=== PATIENT | female | born 1955 | race Caucasian/White ===

== ENCOUNTER 2021-05-04 12:05 | Outpatient (REF) | payer MEDICARE, SELFPAY ==
[2021-05-04 14:36] LABS: Alanine Aminotransferase 15 U/L (0-31); Albumin Level 4.2 g/dL (3.5-5.0); Alkaline Phosphatase 91 U/L (39-117); Anion Gap 15 (12-20); Aspartate Amino Transferase 20 U/L (5-31); Bilirubin Total 0.4 mg/dL (0.0-1.0); Blood Urea Nitrogen 26 mg/dL (9-16); Calcium 9.7 mg/dL (8.4-10.2); Carbon Dioxide 23 mmol/L (22-29); Chloride 106 mmol/L (96-108); Estimated Glomerular Filt Rate 51; Glucose Random 88 mg/dL (60-115); Sodium 139 mmol/L (135-145)
== END 2021-05-04 12:06 | disposition home or self-care (01) ==
LOC: HO.MANLDS 12:05
PROVIDERS: PCP Physician Assistant; Visit Provider Physician Assistant
DX: M54.59 Other low back pain (principal)
CPT/HCPCS: 36415; 80053

== ENCOUNTER 2021-09-24 15:42 | Outpatient (REF) | payer MEDICARE, SELFPAY | END 2021-09-24 15:43 | disposition home or self-care (01) | LOC: HO.MANLDS 15:42 | PROVIDERS: PCP Physician Assistant; Visit Provider Physician Assistant | DX: R30.0 Dysuria (principal) | CPT/HCPCS: 87086 ==

== ENCOUNTER 2022-01-12 08:40 | Outpatient (REF) | payer MEDICARE, SELFPAY ==
[2022-01-12 08:52] LABS: MANUAL DIFF FLAG NO
[2022-01-12 09:09] LABS: Basophils Absolute Auto 0.1 X10*3/uL (0.0-0.2); Basophils Percent Auto 0.7 % (0-2); Eosinophils Absolute Auto 0.2 X10*3/uL (0.0-0.4); Eosinophils Percent Auto 2.9 % (0-4); Hematocrit 40.6 % (37.0-47.0); Imm Gran Abs Auto 0.03 X10*3/uL (0.00-0.03); Imm Gran Pct Auto 0.4 % (0.0-0.4); Lymphocytes Absolute Auto 2.5 X10*3/uL (1.2-4.9); Lymphocytes Percent Auto 35.9 % (20-40); Mean Corpuscular Hemoglobin 29.7 pg (27.0-33.0); Mean Corpuscular Volume 92.9 fL (80.0-98.0); Mean Platelet Volume 9.4 fL (9.4-12.3); Monocytes Absolute Auto 0.6 X10*3/uL (0.1-1.2); Monocytes Percent Auto 8.6 % (2-11); Neutrophils Absolute Auto 3.5 x10*3/uL (2.0-8.3); Neutrophils Percent Auto 51.5 % (45-73); Platelet Count 254 X10*3/uL (160-400); Red Blood Count 4.37 X10*6/uL (4.20-5.50); Red Cell Distribution Width 13.3 % (11.0-16.0); White Blood Count 6.9 X10*3/uL (4.8-10.8)
[2022-01-12 09:51] LABS: Ferritin 170 ng/mL (10-250); Free T4 (Free Thyroxine) 1.02 ng/dL (0.71-1.85); Thyroid Stimulating Hormone 0.88 uIU/mL (0.32-4.0); Vitamin D 25-OH Total 23.2 ng/mL (>30)
[2022-01-12 09:59] LABS: Erythrocyte Sedimentation Rate 14 MM/HR (0-20)
[2022-01-12 10:09] LABS: Alanine Aminotransferase 11 U/L (0-31); Albumin Level 4.2 g/dL (3.5-5.0); Alkaline Phosphatase 101 U/L (39-117); Anion Gap 13 (12-20); Aspartate Amino Transferase 14 U/L (5-31); Bilirubin Total 0.4 mg/dL (0.0-1.0); Blood Urea Nitrogen 20 mg/dL (9-16); C Reactive Protein 0.22 mg/dL (< or = 0.50); Calcium 9.8 mg/dL (8.4-10.2); Carbon Dioxide 23 mmol/L (22-29); Chloride 111 mmol/L (96-108); Estimated Glomerular Filt Rate > 60; Glucose Random 93 mg/dL (60-115); Iron 73 mcg/dL (30-160); Magnesium 1.9 mg/dL (1.6-2.6); Percent Iron Saturation 23 % (15-50); Potassium 4.7 mmol/L (3.3-5.1); Sodium 142 mmol/L (135-145); Total Iron Binding Capacity 323 mcg/dL (228-428); Total Protein 7.3 g/dL (6.5-8.0); Unsaturated Iron Binding 250 ug/dL
[2022-01-14 10:48] LABS: Folate 10.3 ng/mL (> or = 4.0); Vitamin B12 370 pg/mL (200-900)
[2022-01-18 19:21] LABS: Thyroid Peroxidase Antibodies <1 IU/mL (<9)
== END 2022-01-12 08:41 | disposition home or self-care (01) ==
LOC: HO.LAB 08:40
PROVIDERS: PCP Internal Medicine; Visit Provider Physician Assistant
DX: R53.83 Other fatigue (principal); M89.8X9 Other specified disorders of bone, unspecified site; M79.10 Myalgia, unspecified site
CPT/HCPCS: 36415; 80053; 82306; 82607; 82728; 82746; 83540; 83735; 84439; 84443; 85025; 85652; 86140; 86376

== ENCOUNTER 2022-02-08 09:58 | Outpatient (REF) | payer MEDICARE, SELFPAY ==
[2022-02-08 11:36] LABS: Appearance Urine CLEAR; Color Urine YELLOW; Glucose Urine UA NEG (NEG); Leukocyte Esterase Urine NEG (NEG); Nitrite Urine NEG (NEG); PH 5.5 (5.0-8.0); Specific Gravity - Urine >= 1.030 (1.005-1.025); Urine Blood NEG (NEG); Urine Ketones NEG (NEG); Urine Protein NEG (NEG-TRACE)
== END 2022-02-08 09:59 | disposition home or self-care (01) ==
LOC: HO.MANLNP 09:58
PROVIDERS: Visit Provider Physician Assistant
DX: R30.0 Dysuria (principal)
CPT/HCPCS: 81003